=== PATIENT | female | born 1980 | race African-American/Black ===

== ENCOUNTER 2017-08-25 12:36 | Emergency (ER) | payer OTHER, SELFPAY ==
--- NOTE | 2017-08-25 13:38 | HMH.EDUTC ---
[facility] [place]ression: Sinusitis Qualifiers: Sinusitis location: other Chronicity: unspecified Qualified Code(s): J32.9 - Chronic sinusitis, unspecified Disposition: Home, Self-Care Condition on Discharge: Good Instructions: Sinusitis, Sinus Headache, DI for Sinusitis Additional Instructions: Start antibiotic. Sinus infections may take 2-3 days to notice much improvement so be sure to use conservative measures as discussed for symptoms Lots of Fluids Sleep elevated Humidifer/vaporizer Augmentin can cause GI effects. Probiotics may help to prevent these symptoms Follow up with family doctor if symptoms worsen or no improvement' Prescriptions: Amoxicillin/Potassium Clav [Augmentin 875-125 Tablet] 1 tab PO Q12H #14 tab predniSONE [Prednisone 20mg Tab] 20 mg PO BID #10 tab Referrals: Jennifer Solo [Primary Care Provider] - Time of Disposition: 13:59 Medical Decision Making - Burke Inquiry Pt receiving controlled substance: No Burke was queried for this patient: No [facility] [place] - General Stated complaint: horvath back pain ear pressure sore throat - History of Present Illness Provider Complaint: Patient state that she is suppose to be taking Mobic for arthritis but she has been out of it for several weeks and state that she is also feels like she may have a sinus infection and sinus headache States that she is having pressure feeling behind her eyes and feels full in her ears State that symptoms have been getting worse last couple of weeks - Related Data Previous Rx's Medication Instructions Recorded Amoxicillin/Potassium Clav 1 tab PO Q12H #14 tab 08/25/17 [Augmentin 875-125 Tablet] predniSONE [Prednisone 20mg 20 mg PO BID #10 tab 08/25/17 Tab] Allergies Allergy/AdvReac Type Severity Reaction Status Date / Time No Known Allergies Allergy Unverified 08/03/17 14:34 [facility] History I have reviewed the patient's past medical history: Yes Other Medical History: Reports: Arthritis ROS Obtained: Yes All systems reviewed & no additional complaints - Constitutional Constitutional: Reports body ache, Reports headache(s) - ENT Ears, Nose, Mouth, and Throat: Reports nasal congestion, Reports sinus pain, Reports sinus pressure Physical Exam - General General appearance: alert, in no apparent distress - Expanded ENT Exam Nose exam: Present: sinus tenderness, other (tenderness noted maxillary sinus) - Respiratory Respiratory exam: Present: normal lung sounds bilaterally. Absent: respiratory distress - Cardiovascular Cardiovascular exam: Present: regular rate, normal rhythm. Absent: JVD - Back Exam Back exam: Present: normal inspection, other. Absent: tenderness Comment: State that she is suppose to be on medication for arthritis however she has been out of the medication and not taken it and state that this feels like the pain she has with her arthritis - Neurological Exam Neurological exam: Present: alert, oriented X3
[2017-08-25 13:41] VITALS: BP 154/92; PULSE 78; RESP 20; TEMP 36.8; O2SAT 100; BMI 32.1
--- NOTE | 2017-08-25 13:49 | ED_ITS ---
[facility] [place]ression: Sinusitis Qualifiers: Sinusitis location: other Chronicity: unspecified Qualified Code(s): J32.9 - Chronic sinusitis, unspecified Disposition: Home, Self-Care Condition on Discharge: Good Instructions: Sinusitis, Sinus Headache, DI for Sinusitis Additional Instructions: Start antibiotic. Sinus infections may take 2-3 days to notice much improvement so be sure to use conservative measures as discussed for symptoms Lots of Fluids Sleep elevated Humidifer/vaporizer Augmentin can cause GI effects. Probiotics may help to prevent these symptoms Follow up with family doctor if symptoms worsen or no improvement' Prescriptions: Amoxicillin/Potassium Clav [Augmentin 875-125 Tablet] 1 tab PO Q12H #14 tab predniSONE [Prednisone 20mg Tab] 20 mg PO BID #10 tab Referrals: Jennifer Solo [Primary Care Provider] - Time of Disposition: 13:59 Medical Decision Making - Burke Inquiry Pt receiving controlled substance: No Burke was queried for this patient: No [facility] [place] - General Stated complaint: horvath back pain ear pressure sore throat - History of Present Illness Provider Complaint: Patient state that she is suppose to be taking Mobic for arthritis but she has been out of it for several weeks and state that she is also feels like she may have a sinus infection and sinus headache States that she is having pressure feeling behind her eyes and feels full in her ears State that symptoms have been getting worse last couple of weeks - Related Data Previous Rx's Medication Instructions Recorded Amoxicillin/Potassium Clav 1 tab PO Q12H #14 tab 08/25/17 [Augmentin 875-125 Tablet] predniSONE [Prednisone 20mg 20 mg PO BID #10 tab 08/25/17 Tab] Allergies Allergy/AdvReac Type Severity Reaction Status Date / Time No Known Allergies Allergy Unverified 08/03/17 14:34 [facility] History I have reviewed the patient's past medical history: Yes Other Medical History: Reports: Arthritis ROS Obtained: Yes All systems reviewed & no additional complaints - Constitutional Constitutional: Reports body ache, Reports headache(s) - ENT Ears, Nose, Mouth, and Throat: Reports nasal congestion, Reports sinus pain, Reports sinus pressure Physical Exam - General General appearance: alert, in no apparent distress - Expanded ENT Exam Nose exam: Present: sinus tenderness, other (tenderness noted maxillary sinus) - Respiratory Respiratory exam: Present: normal lung sounds bilaterally. Absent: respiratory distress - Cardiovascular Cardiovascular exam: Present: regular rate, normal rhythm. Absent: JVD - Back Exam Back exam: Present: normal inspection, other. Absent: tenderness Comment: State that she is suppose to be on medication for arthritis however she has been out of the medication and not taken it and state that this feels like the pain she has with her arthritis - Neurological Exam Neurological exam: Present: alert, oriented X3
[2017-08-25 14:06] LABS: UTC Influenza A Antigen Negative (Negative); UTC Influenza B Antigen Negative (Negative); UTC Strep Screen (Rapid) Negative (Negative)
== END 2017-08-25 14:30 | disposition home or self-care (01) ==
PROVIDERS: Emergency Provider Nurse Practitioner; Family Provider Physician Assistant; PCP Family Medicine Geriatric Medicine
DX: J32.9 Chronic sinusitis, unspecified (principal)
CPT/HCPCS: 87804; 87880; 96372; 99202

== ENCOUNTER 2017-10-20 08:41 | Emergency (ER) | payer OTHER, SELFPAY ==
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
[2017-10-20 09:06] VITALS: BP 175/105; PULSE 85; RESP 18; TEMP 36.8; O2SAT 100; BMI 30.7
[2017-10-20 10:06] VITALS: BP 155/109; PULSE 73; RESP 20; TEMP 36.7; O2SAT 100
== END 2017-10-20 10:12 | disposition home or self-care (01) ==
PROVIDERS: Emergency Provider Emergency Medicine; Family Provider Physician Assistant; PCP Family Medicine
DX: M50.33 Other cervical disc degeneration, cervicothoracic region (principal); M51.36 Other intervertebral disc degeneration, lumbar region; M47.9 Spondylosis, unspecified
CPT/HCPCS: 96372; 99281